=== PATIENT | female | born 2005 | race Asian ===

== ENCOUNTER 2025-03-13 09:21 | Outpatient (REF) | payer OTHER, SELFPAY ==
--- OUTSIDE RECORDS SUMMARY | 2025-03-13 10:34 | XMS_ITS | Clinical Summary ---
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, discussed OCP, opted not to tx Immunizations Immunization Administration Dates Next Due COVID-19 ty Al, 12+ years 01/13/2022 DTaP 03/03/2004, 3,2003,04/25 HPV Vaccine 9 Valent 09/02/2022 Hep B, ped/adol 2003,2003,2003 HiB 04/25/2004, 4,2003,06/24 IPV 2003,2003,2003 Influenza, injectable, quadr ivalent, preservative free 11/01/2021 MMR 02/18/2008,05/25/2004,2003 Meningococcal B Bexsero 12/18/2023 Meningococcal B Trumenba 07/19/2021 Meningococcal Conj (Menactra) MCV4P 05/08/2021 Pneumococcal Conjugate 13-Valent 04/25/2004,07/29,2003 Tdap 05/15/2021 Varicella 05/16/2021,08/27/2004 Family History Relation Name Status Comments Father Alive Mother Lianne Vicente Alive Sister Alive Social History Tobacco Use Types Packs/Day Years Used Date Smoking Tobacco: Never Smokeless Tobacco: Never Tobacco Cessation:Counseling Given: Not Answered Alcohol Use Standard Drinks/Week Comments Never 0 (1 standard drink = 0.6 oz pur e alcohol) Hunger/Food Answer Date Recorded In the last 12 months, did y ou or your family ever eat less than you felt you should because there wasn't enough money for food? No 12/18/2023 Stable Housing Answer Date Recorded Are you worried that in the next 2 months you may not have stable housing? No 12/18/2023 Transportation Concerns Answer Date Rec orded In the last 12 months, have you or your family ever had to go without healthcare because you didn't have a way to get there? No 12/18/2023 Hazards in Home Answer Date Recorded Think about the place you li ve. Do you have problems with any of the following? Pests (mice or roaches), mold, no/not working smoke detectors, water leaks, no window guards. No 2023 Financing Utilities Answer Date Recorde d In the last 12 months, has t he electric, gas, oil, or water company threatened to shut off your services in your home? No 12/18/2023 Safety at Home Answer Date Recorded Are you or your family worried about feeling saf e in your home? No 12/18/2023 Outside Support Answer Date Recorded Do you feel that you need mo re support from other people or programs to help you care for yourself or your family? No 12/18/2023 Understanding Health Concerns Answer Da te Recorded Do you need help understandi ng your or your child's healthcare needs (diagnosis, medications, plan, etc.)? No 12/18/2023 Financing Health Concerns Answer Date R ecorded In the last 12 months, was t here a time when your child needed to see a doctor or get medications or supplies but could not because of cost? No 12/18/2023 Missing School or Work Answer Date Nelson rded Did you or your child miss s chool or work because of a health problem that could have been avoided? No 12/18/2023 Comments Unknown Sex and Gender Information Value Date Recorded Sex Assigned at Female 07/19/2021 1:35 PM EDT Legal Sex Female 1:53 PM EDT Gender Identity Female 07/19/2021 1:35 PM EDT Sexual Orientation Straight 07/19/2021 1: 35 PM EDT Last Filed Vital Signs Vital Sign Reading Time Taken Comments Blood Pressure 118/65 12/18/2023 10:05 AM EST Pulse - - Temperature 36.9 ??C (98.5 ??F) 07/13/2023 1:44 PM ED T Respiratory Rate - - Oxygen Saturation - - Inhaled Oxygen Concentration - - Weight 65.4 kg (144 lb 4 oz) 12/18/2023 10:05 AM EST Height 164.5 cm (5' 4.75 ) 12/18/2023 10:[address] Body Mass Index 24.19 12/18/2023 10:05 AM EST Plan of Treatment Health Maintenance Due Date Last Done Comments IPV Vaccines (4 of 4 - 4-dose series) 2007 2003, 2003, 2003 HPV Vaccines (2 - 3-dose series) 09/30/2022 09/02/2022 Men B Vaccine (2 of 2 - Trumenba SCDM 2-dose series) 04/17/2024 12/18/2023, 07/19/2021 Influenza Vaccines (#1) 2024 11/01/2021 COVID-19 Vaccine ( season) 2024 01/13/2022, 07/03/2021, 06/12/2021 Chlamydia and Gonorrhea Screening 11/27/2024 09/02/2022 DTaP,Tdap,and Td Vaccines (6 - Td or Tdap) 05/15/2031 05/15/2021, 03/03/2004, 2003, Additional history exists Hepatitis B Vaccines Completed 2003, 2003, 2003 HIB Vaccines Completed 04/25/2004, 0405/2004, 2003, Additional history exists Pneumococcal Vaccine Completed 04/25/2004, 2003, 2003 MMR Vaccines Completed 02/18/2008, 04/28, 2003 Meningococcal Vaccine Completed 05/08/2021 Varicella Vaccines Completed 05/16/2021, 08/27/2004 Hepatitis A Vaccines Aged Out No long er eligible based on patient's age to complete this topic Procedures * Due to [place] [employer] law, this organization might not be sharing sensitive test results. Procedure Name Priority Date/Time Associated Diagnosis Comments CHLAMYDIA AND GONORRHEA, AMPLIFIED Routine 09/02/2022 3:29 PM EDT Screening for STDs (sexually transmitted diseases) from Last 3 Months or Most Recently Relevant to Health Maintenance Results * Due to [facility] law, this organization might not be sharing sensitive test results. * Chlamydia and Gonorrhea, Amplified (09/02/2022 3:29 PM EDT) Chlamydia trachomatis RNA, TMA NOT DETECTED NOT DETECTED [facility] Neisseria gonorrhoeae, PAWAN NOT DETECTED NOT DETECTED [facility] Comment [facility] Comment: The analytical performance characteristics of this assay, when used to test SurePath(TM) specimens have been determined by [employer] ( [facility] ). The modifications have not been cleared or approved by the FDA. This assay has been validated pursuant to the CLIA regulations and is used for clinical purposes. For additional information, please refer to https://education.[employer]/faq/NUU149 (This link is being provided for information/ educational purposes only.) Urine (Urine) 09/02/2022 3:2 9 PM EDT 09/03/2022 3:37 AM EDT Narrative Resulting Agency Comment Performing Organization Information: ?Site ID: [id number] ?Name: [facility] ?Address: [address] [place] [address], [place] [address] ?Director: Do Rowland us Sherry Rivero MD LAB MICROBIOLOGY - GENERAL ORDERABLES Final Result [employer] from Last 3 Months or Most Recently Relevant to Health Maintenance Care Teams Poker Manager Relationship Specialty Start Date End Date Sherry Kinney MD [address] [place] [phone] PCP - General Pediatrics 05/20/21
== END 2025-03-13 09:22 | disposition home or self-care (01) ==
LOC: HO.UMASIMG 09:21
PROVIDERS: Visit Provider Nurse Practitioner Women's Health
DX: Z13.89 Encounter for screening for other disorder (principal)

== ENCOUNTER 2025-03-20 07:46 | Outpatient (REF) | payer OTHER, SELFPAY ==
--- NOTE | ~2025-03-20 | US_ITS ---
EXAMINATION: US PELVIS HISTORY: IRREGULAR PERIODS, DYSPAREUNIA COMPARISON: There are no prior studies for comparison. TECHNIQUE: Transabdominal real-time 2D mei-scale ultrasound was performed. Patient could not tolerate an endovaginal examination. FINDINGS: Uterus: The uterus is normal in size, measuring 7.8 x 3.2 x 3.9 cm. Myometrium has a normal echotexture. No fibroids are identified. Endometrium: The endometrial stripe measures 6 mm in thickness. Right ovary: The right ovary measures 3.6 x 1.7 x 2.4 cm. The right ovary is normal in size and echotexture. Left ovary: The left ovary measures 3.3 x 1.5 x 1.5 cm. The left ovary is normal in size and echotexture. Pelvic fluid: none. US/US pelvic complete IMPRESSION: Unremarkable pelvic ultrasound. Electronically signed by: Ernesto Levy MD 03/21/2025 03:00 PM EDT
--- OUTSIDE RECORDS SUMMARY | 2025-03-20 07:51 | XMS_ITS | Clinical Summary ---
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 Procedure Name Priority Date/Time Associated Diagnosis Comments CHLAMYDIA AND GONORRHEA, AMPLIFIED Routine 09/02/2022 3:29 PM EDT Screening for STDs (sexually transmitted diseases) from Last 3 Months or Most Recently Relevant to Health Maintenance Results * Due to [facility] law, this organization might not be sharing sensitive test results. * Chlamydia and Gonorrhea, Amplified (09/02/2022 3:29 PM EDT) Chlamydia trachomatis RNA, TMA NOT DETECTED NOT DETECTED [facility] Neisseria gonorrhoeae, PAWAN NOT DETECTED NOT DETECTED [facility] Comment [facility] Comment: The analytical performance characteristics of this assay, when used to test SurePath(TM) specimens have been determined by [employer]. The modifications have not been cleared or approved by the FDA. This assay has been validated pursuant to the CLIA regulations and is used for clinical purposes. For additional information, please refer to https://education.[employer]/faq/VQF508 (This link is being provided for information/ educational purposes only.) Urine (Urine) 09/02/2022 3:2 9 PM EDT 09/03/2022 3:37 AM EDT Narrative Resulting Agency Comment Performing Organization Information: ?Site ID: [id number] ?Name: [facility] ?Address: [address] [place] [address], [place] [address] ?Director: Do Rowland us Sherry Rivero MD LAB MICROBIOLOGY - GENERAL ORDERABLES Final Result [employer] from Last 3 Months or Most Recently Relevant to Health Maintenance Care Teams Motor Vehicle Inspector Relationship Specialty Start Date End Date Sherry Kinney MD [address] [place] [phone] PCP - General Pediatrics 05/20/21
== END 2025-03-20 07:47 | disposition home or self-care (01) ==
LOC: HO.UMASIMG 07:46
PROVIDERS: Visit Provider Nurse Practitioner Women's Health
DX: N92.6 Irregular menstruation, unspecified (principal); N94.12 Deep dyspareunia
CPT/HCPCS: 76856